=== PATIENT | female | born 1945 | race Caucasian/White ===

== ENCOUNTER 2018-04-11 21:30 | Inpatient (IN) | payer BC, MEDICARE ==
[~2018-04-11] VITALS: Ht 165.1 cm; Wt 71.8 kg
[2018-04-11] MEDS ORDERED: SODIUM CHLORIDE 0.9% 1,000ML IVBOLUS ONE (22:00)
[2018-04-11] MEDS ORDERED: PLEASE ENTER ALLERGIES MC SCH (22:00)
[2018-04-11] MEDS ORDERED: SODIUM CHLORIDE FLUSH 10ML SYR IVF ONE (22:00)
[2018-04-11] MEDS ORDERED: ONDANSETRON ODT 4 MG PO ONE (22:00)
[2018-04-11 22:21] LABS: BASOPHILS # (AUTO) 0.04 x10^3/uL (0-0.1); BASOPHILS % (AUTO) 0 % (0-1); EOSINOPHILS # (AUTO) 0.16 x10^3/uL (0-0.4); EOSINOPHILS % (AUTO) 2 % (1-7); LYMPHOCYTES # (AUTO) 1.94 x10^3/uL (1-3.4); LYMPHOCYTES % (AUTO) 19 % (22-44); MD NO; MEAN CORPUSCULAR HGB CONC 33.7 g/dL (32.4-35.8); MEAN CORPUSCULAR VOLUME 101.1 fL (80-100); MEAN PLATELET VOLUME 7.6 fL (7.4-10.4); MONOCYTES # (AUTO) 1.32 x10^3/uL (0.2-0.8); MONOCYTES % (AUTO) 13 % (2-9); NEUTROPHILS # (AUTO) 6.66 x10^3/uL (1.8-6.8); NEUTROPHILS % (AUTO) 66 % (42-75); PLATELET COUNT 252 x10^3/uL (130-400); RED BLOOD COUNT 4.34 x10^6/uL (3.82-5.3); RED CELL DISTRIBUTION WIDTH 13.3 % (9.6-15.2)
[2018-04-11 22:31] LABS: ALANINE AMINOTRANSFERASE 14 U/L (12-78); ALBUMIN 2.8 g/dL (3.4-5.0); ANION GAP 7 mmol/L (5-15); CALCIUM 8.1 mg/dL (8.5-10.1); CHLORIDE 105 mmol/L (98-107); CREATININE 1.03 mg/dL (0.55-1.02)
[2018-04-11 22:36] LABS: ALKALINE PHOSPHATASE 78 U/L (45-117); BILIRUBIN,TOTAL 0.4 mg/dL (0.2-1.0); TOTAL PROTEIN 6.6 g/dL (6.4-8.2); TROPONIN I < 0.015 ng/mL (0.000-0.045)
[2018-04-11] MEDS ORDERED: ONDANSETRON ODT 4 MG ONE (22:40)
[2018-04-11] MEDS ORDERED: HYDROmorphone 2 MG/ML, 1ML ONE (22:41)
[2018-04-11] MEDS: HYDROmorphone 2 MG/ML, 1ML IVPush PRN (22:48)
[2018-04-11] MEDS ORDERED: OMNIPAQUE 350 MG/ML, 100ML BOTTLE ONE (23:44)
[2018-04-12] MEDS ORDERED: KETOROLAC 30 MG/1 ML ONE (00:05)
[2018-04-12] MEDS: HYDROmorphone 2 MG/ML, 1ML IVPush PRN (00:07)
[2018-04-12] MEDS ORDERED: HYDROmorphone 2 MG/ML, 1ML ONE (00:18)
[2018-04-12] MEDS ORDERED: KETOROLAC 30 MG/1 ML IVPush ONE (00:30)
[2018-04-12] MEDS ORDERED: CEFOTETAN PMX 1GM/50ML 50 ML ONE (00:50)
[2018-04-12] MEDS ORDERED: HYDROmorphone 2 MG/ML, 1ML IVPush PRN ×2 (01:00→01:30)
[2018-04-12] MEDS ORDERED: CEFOTETAN PMX 1GM/50ML 50 ML IV ONE (01:00)
[2018-04-12] MEDS ORDERED: ASPI-496 PO (01:21)
[2018-04-12] MEDS ORDERED: LEVO100T5 PO (01:21)
[2018-04-12] MEDS ORDERED: ONDANSETRON 2MG/ML, 2ML IVPush PRN (01:30)
[2018-04-12] MEDS ORDERED: LACTATED RINGERS 1,000 ML IV SCH (01:30)
[2018-04-12] MEDS ORDERED: KETOROLAC 30 MG/1 ML IV PRN ×2 (01:30→11:00)
[2018-04-12] MEDS: CEFOTETAN PMX 1GM/50ML 50 ML IV SCH ×2 (01:30→13:06)
[2018-04-12] MEDS ORDERED: ACETAMINOPHEN 325 MG TABLET PO PRN ×3 (01:30→11:00)
[2018-04-12] MEDS ORDERED: hydrALAzine 20 MG/ML, 1ML IVPush PRN (01:30)
[2018-04-12] MEDS ORDERED: ONDANSETRON ODT 4 MG PO PRN (01:30)
[2018-04-12 02:00] VITALS: BP 148/78
[2018-04-12] MEDS ORDERED: ENOXAPARIN 40 MG/0.4 ML SQ SCH (02:30)
[2018-04-12] MEDS ORDERED: ALBUTEROL SULFATE 2.5 MG/3 ML NPPB PRN ×2 (03:00→08:30)
[2018-04-12] MEDS ORDERED: OMEP20CA14 BC (04:38)
[2018-04-12 04:51] LABS: BASOPHILS # (AUTO) 0.05 x10^3/uL (0-0.1); BASOPHILS % (AUTO) 1 % (0-1); EOSINOPHILS # (AUTO) 0.06 x10^3/uL (0-0.4); EOSINOPHILS % (AUTO) 1 % (1-7); LYMPHOCYTES # (AUTO) 0.99 x10^3/uL (1-3.4); LYMPHOCYTES % (AUTO) 10 % (22-44); MD NO; MEAN CORPUSCULAR HEMOGLOBIN 34.4 pg (27.0-34.8); MEAN CORPUSCULAR HGB CONC 33.9 g/dL (32.4-35.8); MEAN CORPUSCULAR VOLUME 101.5 fL (80-100); MEAN PLATELET VOLUME 7.8 fL (7.4-10.4); MONOCYTES # (AUTO) 0.97 x10^3/uL (0.2-0.8); MONOCYTES % (AUTO) 10 % (2-9); NEUTROPHILS # (AUTO) 8.07 x10^3/uL (1.8-6.8); NEUTROPHILS % (AUTO) 80 % (42-75); PLATELET COUNT 255 x10^3/uL (130-400); RED BLOOD COUNT 4.39 x10^6/uL (3.82-5.3)
[2018-04-12 04:59] LABS: ANION GAP 6 mmol/L (5-15); CHLORIDE 107 mmol/L (98-107); CREATININE 1.07 mg/dL (0.55-1.02)
[2018-04-12 05:00] LABS: ALANINE AMINOTRANSFERASE 16 U/L (12-78); ALBUMIN 2.8 g/dL (3.4-5.0)
[2018-04-12 05:02] LABS: ALKALINE PHOSPHATASE 80 U/L (45-117); BILIRUBIN,TOTAL 0.4 mg/dL (0.2-1.0); TOTAL PROTEIN 6.5 g/dL (6.4-8.2)
[2018-04-12] MEDS ORDERED: LEVOTHYROXINE 100 MCG TABLET PO SCH (06:00)
[2018-04-12 06:42] LABS: MICROSCOPIC NOT IND
[2018-04-12 06:53] LABS: CULTURE INDICATED? NO
[2018-04-12] MEDS ORDERED: MIDAZOLAM 1 MG/ML, 2ML ONE (07:30)
[2018-04-12] MEDS ORDERED: FENTANYL PF 250 MCG/5ML ONE (07:30)
[2018-04-12] MEDS ORDERED: PROPOFOL 10 MG/ML, 20ML ONE (07:30)
[2018-04-12] MEDS ORDERED: SUCCINYLCHOLINE 20 MG/ML, 10ML ONE (07:32)
[2018-04-12] MEDS ORDERED: ROCURONIUM 10MG/ML,5ML ONE (07:32)
[2018-04-12] MEDS ORDERED: GLYCOPYRROLATE 0.4 MG/2 ML, 2ML ONE (07:33)
[2018-04-12] MEDS ORDERED: CEFOTETAN PMX 2GM/50ML 50 ML ONE (07:33)
[2018-04-12] MEDS ORDERED: NEOSTIGMINE 1 MG/ML, 10ML ONE (07:33)
[2018-04-12] MEDS ORDERED: ONDANSETRON 2MG/ML, 2ML ONE (07:36)
[2018-04-12] MEDS ORDERED: DEXAMETHASONE 4 MG/ML, 1ML ONE ×2 (07:36)
[2018-04-12] MEDS ORDERED: BUPIVACAINE/PF-EPI 0.5% 1:200K ONE (07:50)
[2018-04-12] MEDS ORDERED: THROMBIN 5,000 UNIT VIAL TP ONE (07:51)
[2018-04-12] MEDS ORDERED: MEPERIDINE/PF 25MG/0.5ML IVPush PRN (08:30)
[2018-04-12] MEDS ORDERED: LABETALOL 5MG/ML, 20ML IV PRN (08:30)
[2018-04-12] MEDS ORDERED: MORPHINE SULFATE 4 MG/ML, 1ML IVPush PRN (08:30)
[2018-04-12] MEDS ORDERED: HYDROmorphone 1 MG/ML, 1ML IV PRN (08:30)
[2018-04-12] MEDS ORDERED: PROMETHAZINE 25 MG/ML, 1ML IM PRN ×2 (08:30)
[2018-04-12] MEDS ORDERED: FENTANYL PF 100 MCG/2ML IV PRN (08:30)
[2018-04-12] MEDS ORDERED: OXYcodone 5 MG/5 ML ORAL.SOL UDC PO PRN (08:30)
[2018-04-12] MEDS ORDERED: ONDANSETRON 2MG/ML, 2ML IV PRN (08:30)
[2018-04-12] MEDS ORDERED: ONDANSETRON ODT 8 MG PO PRN (08:30)
[2018-04-12] MEDS ORDERED: BUPIVACAINE/PF-EPI 0.5% 1:200K INFIL ONE (08:30)
[2018-04-12] MEDS ORDERED: hydrALAzine 20 MG/ML, 1ML IV PRN (08:30)
[2018-04-12] MEDS ORDERED: PROMETHAZINE 25 MG/ML, 1ML IV PRN (08:30)
[2018-04-12] MEDS ORDERED: OMNIPAQUE 350 MG/ML, 50 ML BOTTLE IV ONE (09:00)
[2018-04-12] MEDS ORDERED: OMNIPAQUE 350 MG/ML, 50 ML BOTTLE ONE (09:03)
[2018-04-12 10:50] VITALS: BP 130/78
[2018-04-12] MEDS ORDERED: D5%-0.45NACL+KCL 20MEQ 1,000 ML IV SCH (11:00)
[2018-04-12] MEDS ORDERED: DIPHENHYDRAMINE 25 MG CAPSULE PO PRN (11:00)
[2018-04-12] MEDS ORDERED: DIPHENHYDRAMINE 50 MG/ML, 1ML IV PRN (11:00)
[2018-04-12] MEDS ORDERED: ACETAMINOPHEN 650 MG SUPP PR PRN (11:00)
[2018-04-12 12:58] VITALS: BP 130/77
[2018-04-12] MEDS: OXYcodone/APAP 5/325MG TABLET PO PRN ×2 (15:24→20:20)
[2018-04-12] MEDS: morphine SULFATE 10 MG/ML, 1ML IV PRN ×2 (18:15→23:32)
[2018-04-12 20:18] VITALS: BP 113/69
[2018-04-13] MEDS: CEFOTETAN PMX 1GM/50ML 50 ML IV SCH ×2 (01:03→14:29)
[2018-04-13] MEDS: OXYcodone/APAP 5/325MG TABLET PO PRN ×5 (01:07→18:20)
[2018-04-13 02:53] VITALS: BP 114/70
[2018-04-13 04:46] LABS: BASOPHILS # (AUTO) 0.01 x10^3/uL (0-0.1); BASOPHILS % (AUTO) 0 % (0-1); EOSINOPHILS # (AUTO) 0.02 x10^3/uL (0-0.4); EOSINOPHILS % (AUTO) 0 % (1-7); LYMPHOCYTES # (AUTO) 1.39 x10^3/uL (1-3.4); LYMPHOCYTES % (AUTO) 15 % (22-44); MD NO; MEAN CORPUSCULAR HEMOGLOBIN 34.3 pg (27.0-34.8); MEAN CORPUSCULAR HGB CONC 33.4 g/dL (32.4-35.8); MEAN CORPUSCULAR VOLUME 102.7 fL (80-100); MEAN PLATELET VOLUME 7.8 fL (7.4-10.4); MONOCYTES # (AUTO) 0.92 x10^3/uL (0.2-0.8); MONOCYTES % (AUTO) 10 % (2-9); NEUTROPHILS # (AUTO) 6.77 x10^3/uL (1.8-6.8); NEUTROPHILS % (AUTO) 74 % (42-75); PLATELET COUNT 243 x10^3/uL (130-400); RED BLOOD COUNT 3.83 x10^6/uL (3.82-5.3); RED CELL DISTRIBUTION WIDTH 12.7 % (9.6-15.2)
[2018-04-13 04:50] LABS: ALBUMIN 2.5 g/dL (3.4-5.0); ANION GAP 7 mmol/L (5-15); CALCIUM 8.8 mg/dL (8.5-10.1); CHLORIDE 108 mmol/L (98-107)
[2018-04-13 04:54] LABS: ALANINE AMINOTRANSFERASE 33 U/L (12-78); ALKALINE PHOSPHATASE 72 U/L (45-117); BILIRUBIN,TOTAL 0.6 mg/dL (0.2-1.0); TOTAL PROTEIN 6.1 g/dL (6.4-8.2)
[2018-04-13] MEDS: ASPIRIN 81 MG TABLET EC PO SCH (05:50)
[2018-04-13] MEDS: LEVOTHYROXINE 100 MCG TABLET PO SCH (05:50)
[2018-04-13 06:57] VITALS: BP 116/80
[2018-04-13] MEDS: SODIUM CHLORIDE FLUSH 3ML SYRINGE IVF SCH ×2 (07:39→20:35)
[2018-04-13] MEDS: OMEPRAZOLE 20 MG CAPSULE.DR PO SCH (07:39)
[2018-04-13] MEDS: ENOXAPARIN 40 MG/0.4 ML SQ SCH (07:39)
[2018-04-13 09:35] LABS: FREE T4 (FREE THYROXINE) 1.19 ng/dL (0.76-1.46); THYROID STIMULATING HORMONE 11.4 mIU/L (0.358-3.740)
[2018-04-13] MEDS: NICOTINE 14MG/24 HR PATCH.TD24 TD SCH (09:56)
[2018-04-13 12:38] VITALS: BP 106/65
[2018-04-13] MEDS ORDERED: ERGOCALCIFEROL 50,000 UNIT CAPSULE PO SCH (17:00)
[2018-04-13 18:50] VITALS: BP 95/58
[2018-04-14] MEDS: OXYcodone/APAP 5/325MG TABLET PO PRN ×2 (02:34→12:24)
[2018-04-14] MEDS: CEFOTETAN PMX 1GM/50ML 50 ML IV SCH ×2 (02:34→14:30)
[2018-04-14 02:35] VITALS: BP 122/89
[2018-04-14] MEDS: LEVOTHYROXINE 100 MCG TABLET PO SCH (05:40)
[2018-04-14] MEDS: ASPIRIN 81 MG TABLET EC PO SCH (05:40)
[2018-04-14 07:09] VITALS: BP 103/67
[2018-04-14] MEDS: OMEPRAZOLE 20 MG CAPSULE.DR PO SCH (08:06)
[2018-04-14] MEDS: SODIUM CHLORIDE FLUSH 3ML SYRINGE IVF SCH (09:00)
[2018-04-14] MEDS: ENOXAPARIN 40 MG/0.4 ML SQ SCH (09:00)
[2018-04-14] MEDS: NICOTINE 14MG/24 HR PATCH.TD24 TD SCH (10:00)
[2018-04-14] MEDS ORDERED: AMOX1TAB64 PO (12:50)
[2018-04-14 12:54] VITALS: BP 107/69
[2018-04-14] MEDS ORDERED: BISACODYL 10 MG SUPP PR PRN (13:00)
[2018-04-14] MEDS ORDERED: BISACODYL 5 MG EC TABLET PO SCH (13:00)
== END 2018-04-14 15:27 | disposition home or self-care (01) | DRG 417 ==
LOC: ED 04-12 00:20 → EDIP 04-12 00:37 → SUATTDRO 04-12 01:08 → 3NW 04-12 01:57
PROVIDERS: ADMIT Hospitalist; ATTEND Hospitalist
PROC: BF121ZZ Fluoroscopy of Gallbladder using Low Osmolar Contrast (ICD-10-PCS; 2018-04-12)
PROC: 0FT44ZZ Resection of Gallbladder, Percutaneous Endoscopic Approach (ICD-10-PCS; principal; 2018-04-12 07:30)
DX: K81.0 Acute cholecystitis (principal); E43 Unspecified severe protein-calorie malnutrition; K82.2 Perforation of gallbladder; J44.9 Chronic obstructive pulmonary disease, unspecified; E55.9 Vitamin D deficiency, unspecified; E03.9 Hypothyroidism, unspecified; Z99.81 Dependence on supplemental oxygen; Z85.3 Personal history of malignant neoplasm of breast; Z85.43 Personal history of malignant neoplasm of ovary; Z68.23 Body mass index [BMI] 23.0-23.9, adult; Z87.891 Personal history of nicotine dependence; Z90.710 Acquired absence of both cervix and uterus
CPT/HCPCS: 36415; 74022; 74177; 74181; 74300; 76700; 80053; 81003; 82306; 82607; 83690; 84439; 84443; 84484; 85025; 88304; 93005; 96365; 96375; 96376; C1729; G0378; J1100; J1170; J1650; J1885; J2250; J2405; J2704; J2710; J3010; Q0162; Q9967; J0330; J2270; J3480; J7030; J7120; S0074